=== PATIENT | female | born 1980 | race Caucasian/White ===

== ENCOUNTER 2021-10-03 08:31 | Outpatient (CLI) | payer BC ==
--- NOTE | 2021-09-29 08:39 | NUR ---
LMOM WITH DATE TIME AND INSTRUCTIONS. CALL BACK NUMBER LEFT
[2021-10-03] VITALS (7 sets, daily range): BP systolic 111–132; BP diastolic 74–86; PULSE 62–73; TEMP 97.8
[~2021-10-03] VITALS: Ht 167.6 cm; Wt 99.5 kg
[~2021-10-03 08:31] MED LIST: MOTRIN 600600 MG/TAB PO
[2021-10-03] MEDS ORDERED: ZOLOFT 50MG50 MG PO (08:50)
[2021-10-03] MEDS ORDERED: ZYRTEC 10MG10 MG PO (08:51)
[2021-10-03 10:26] LABS: GLUCOSE,CSF 68 mg/dL (40-70)
--- NOTE | 2021-10-03 11:06 | NUR ---
Pt doing well after lumbar puncture. Pt denies any new sx at time of departure. I reviewed dc/fu instructions with pt and . no questions at time of departure.
[2021-10-03 11:21] LABS: CSF APPEARANCE CLEAR; CSF COLOR COLORLESS; CSF MONONUCLEAR 60 % (70-100); CSF POLYMORPHONUCLEAR 40 % (0-6); CSF RBC 193 /mm3 (0-0)
[2021-10-06 09:28] LABS: ALBUMIN CSF 28.7 mg/dL (<=27.0)
[2021-10-06 09:32] LABS: IGG/ALBUMIN SERUM 0.24 (<=0.40)
[2021-10-06 09:43] LABS: CSF IGG/ALBUMIN 0.14 (<=0.21); CSF SYNTHESIS RATE 3.28 mg/24 h (<=12); CSF,IGG 4.1 mg/dL (<=8.1); CSF-IGG INDEX 0.58 (<=0.85)
== END 2021-10-03 11:15 | disposition home or self-care (01) ==
LOC: COL.RAD 08:31
PROVIDERS: Psychiatry & Neurology Neurology
DX: R20.2 Paresthesia of skin (principal); M54.12 Radiculopathy, cervical region; R32 Unspecified urinary incontinence; R29.810 Facial weakness; M25.50 Pain in unspecified joint